=== PATIENT | female | born 1995 | race Caucasian/White ===

== ENCOUNTER 2016-12-15 12:04 | Emergency (ER) | payer BC, OTHER ==
[2016-12-15 12:29] VITALS: BP 102/61; PULSE 110; RESP 16; TEMP 99.5; O2SAT 95
--- NOTE | 2016-12-15 13:12 | UCPHY ---
H & P Time Seen by Provider: 12/15/16 12:40 Patient Type: New HPI/ROS: HPI Sore throat, fever, nausea. 21-year-old female by private vehicle. She reports a sore throat ongoing for the last 2-3 days. Worse over the last 24 hours with associated fever. She has had some nausea but no vomiting. She has had some nasal congestion as well with clear rhinorrhea. She denies any other complaints. No voice changes. No stridor. She is able to swallow liquids. No other complaints. ROS: Constitutional: As above, no chills. No weakness. Eyes: No discharge. No changes in vision. ENT: As above. Respiratory: No cough. No shortness of breath. Gastrointestinal: No abdominal pain, no vomiting, no diarrhea. As above. Musculoskeletal: No back pain. No neck pain. No myalgias or arthralgias. Skin: No rashes. Neurological: No headache. No focal weakness or altered sensation. Past medical history: No significant past medical history. Social history: Here by herself. Physical Exam: General Appearance: Alert, no distress. This patient is responding to questions appropriately and in full sentences. This patient appears well- hydrated and well-nourished. Eyes: Pupils equal and round no pallor or injection. No lid edema, erythema or injection. ENT, Mouth: Mucous membranes are moist. The pharyngeal tissues are unremarkable. No edema or swelling. No asymmetry suggestive of abscess. No erythema or exudates. No stridor on auscultation of her neck. No voice changes. Respiratory: There are no retractions, lungs are clear to auscultation with good air movement bilaterally. Cardiovascular: Regular rate and rhythm. No murmur. Gastrointestinal: Abdomen is soft and nontender, no masses, bowel sounds normal. No focal tenderness at McBurney's point. No Knott sign. Neurological: Motor sensory function is grossly intact. Cranial nerves are normal. Gait is normal. Skin: Warm and dry, no rashes. Musculoskeletal: Neck is supple and nontender. No cervical lymphadenopathy. No pain on flexion of the neck. Extremities are symmetrical. All joints range without pain or impingement. Psychiatric: No agitation. No depression. Database: EKG: Imaging: Procedures: Emergency department course: Her vital signs were reviewed. She is mildly tachycardic. Borderline febrile. Physical exam is otherwise unremarkable. Rapid strep is negative. Likely viral syndrome. She feels comfortable going home and I feel she is safe for discharge. Ibuprofen dosing discussed. Supportive care and oral hydration reviewed. All of her questions were answered. Return to emergency department and follow-up reviewed. She was discharged in good condition. Differential Diagnosis: The differential diagnosis on this patient includes but is not limited to viral pharyngitis, viral syndrome. Streptococcal pharyngitis, retropharyngeal abscess , peritonsillar abscess, tracheitis, epiglottitis, other serious bacterial infection unlikely. This represents a partial list of diagnoses considered. These considerations are based on history, physical exam, past history, reassessment and diagnostic testing. Smoking Status: Never smoked Constitutional: Initial Vital Signs Temperature (C) 37.5 C 12/15/16 12:26 Heart Rate 110 H 12/15/16 12:26 Respiratory Rate 16 12/15/16 12:26 Blood Pressure 102/61 12/15/16 12:26 O2 Sat (%) 95 12/15/16 12:26 O2 Delivery Mode Room Air Allergies/Adverse Reactions: No Known Allergies Allergy (Unverified 12/15/16 12:26) Home Medications: Medication Instructions Recorded NK [No Known Home Meds] 05/14/15 Medical Decision Making - Data Points Laboratory Results: 12/15/16 12/15/16 Unknown 12:20 Group A Strep Screen NEGATIVE (NEGATIVE) Group A Strep DNA Pending Departure - Departure Disposition: Home, Routine, Self-Care Clinical Impression: Pharyngitis Condition: Good Instructions: Pharyngitis (ED) Additional Instructions: Read and follow provided instructions. Follow-up with your primary care physician in 1-2 days for re-evaluation. Adult Pain & Fever Control: We recommend Acetaminophen (Tylenol) and Ibuprofen (Motrin,Advil) for pain and fever control. When fever is high or pain severe, both drugs can be used at the same time, but at different intervals. Please note the time differences. Your dose is: Acetaminophen 650mg every 4 to 6 hours Ibuprofen 500-600mg every 6 hours with food Note: do not take Acetaminophen with Hydrocodone (Vicodin, Lortab) or Oycodone (Percocet). These medications also contain Acetaminophen. No more than 3000mg of Acetaminophen should be taken in 24 hours (for an adult). Return to the emergency department for worsening throat pain, difficulty swallowing, high fever, voice changes or other serious concerns. Referrals: NONE *PRIMARY CARE P,. [Primary Care Provider] - As per Instructions - PQRS PQRS Measurement: Not applicable.
== END 2016-12-15 13:28 | disposition home or self-care (01) ==
LOC: CED 12:04
DX: J02.9 Acute pharyngitis, unspecified (principal); R50.9 Fever, unspecified; R11.0 Nausea
CPT/HCPCS: 87880-PO; G0463-PO

== ENCOUNTER 2016-12-18 14:17 | Emergency (ER) | payer OTHER ==
[2016-12-18 14:49] VITALS: BP 103/68; PULSE 91; RESP 16; TEMP 99.5; O2SAT 93
--- NOTE | 2016-12-18 15:51 | UCPHY ---
H & P Time Seen by Provider: 12/18/16 14:58 Patient Type: Established HPI/ROS: This patient reports worsening cough since her initial visit for a viral URI seen here on Wednesday, 3 days prior to arrival. She explains that she had coryza and typical cold symptoms until the last 3 days when she developed a cough associated with some wheezing. She has a vague history of exercise- induced asthma as a child but has not used inhalers for years. She feels she has had low-grade subjective fevers with her symptoms. ROS: No high fevers or chills. HEENT: No facial pain. Pulmonary: No pleuritic pain no respiratory distress. Cardiovascular: No lightheadedness. Musculoskeletal: No leg swelling or calf pain. 7 point ROS is otherwise negative. Past Medical/Surgical History: Otherwise healthy Smoking Status: Never smoked Physical Exam: Physical Exam Vital signs are normal. General: No acute distress HEENT: Nose: Clear discharge bilaterally. No sinus tenderness to percussion. Ears: External canals and tympanic membranes are clear with no erythema or abnormal findings bilaterally. Oropharynx: No erythema or exudates. No dysphonia. No drooling or stridor. Neck: Supple with no meningismus. Eyes: Pupils equal and react to light. Extraocular motions are intact. Lungs: Mild expiratory wheeze bilaterally. No rales. No rhonchi. Cardiac: Regular rate and rhythm with no murmur gallop or rub Skin: No rash or pallor. Neuro: Alert with no focal deficits noted. Initial differential diagnosis: URI with reactive airway disease flare, viral bronchitis, doubt pneumonia Constitutional: Initial Vital Signs Temperature (C) 37.5 C 12/18/16 14:43 Heart Rate 91 12/18/16 14:43 Respiratory Rate 16 12/18/16 14:43 Blood Pressure 103/68 12/18/16 14:43 O2 Sat (%) 93 12/18/16 14:43 O2 Delivery Mode Room Air Allergies/Adverse Reactions: No Known Allergies Allergy (Unverified 12/15/16 12:26) Home Medications: Medication Instructions Recorded Albuterol Hfa Anes Only [Proair 2 puffs IH Q4 PRN #1 mdi 12/18/16 Hfa Icu (*)] Fluticasone Hfa 220 Mcg [Flovent 2 puffs IH DAILY #1 mdi 12/18/16 220 MCG Hfa MDI (*)] Guaifenesin/Codeine Phosphate 5 - 10 ml PO Q6 PRN #120 ml 12/18/16 [Guaifenesin-Codeine Liquid] MDM/Departure - Depart Disposition: Home, Routine, Self-Care Clinical Impression: Viral bronchitis Condition: Good Instructions: Acute Bronchitis (ED) Additional Instructions: Diagnosis: Viral bronchitis This may just be or cold with a reactive airway response given her previous history of exercise-induced asthma. This is a similar process to a viral bronchitis. Plan: Humidifier Albuterol inhaler with spacer for cough, wheeze or shortness of breath Guaifenesin with codeine for cough prevents sleep at night If her cough is not resolving with treatment plan over the next 5-7 days then add Flovent steroid in uses in addition to the albuterol for 10-14 days. Return for any significant worsening despite the treatment plan such as high fevers or trouble breathing despite the medications. Prescriptions: Albuterol Hfa Anes Only [Proair Hfa Icu (*)] 2 puffs IH Q4 PRN #1 mdi PRN Reason: Wheezing Fluticasone Hfa 220 Mcg [Flovent 220 MCG Hfa MDI (*)] 2 puffs IH DAILY #1 mdi Guaifenesin/Codeine Phosphate [Guaifenesin-Codeine Liquid] 5 - 10 ml PO Q6 PRN # 120 ml PRN Reason: Cough Referrals: NONE *PRIMARY CARE P,. [Primary Care Provider] - As per Instructions - PQRS PQRS Measurement: NA
== END 2016-12-18 16:06 | disposition home or self-care (01) ==
LOC: CED 14:17
DX: J20.8 Acute bronchitis due to other specified organisms (principal)
CPT/HCPCS: 87400-PO; 99214-PO; G0463-PO